=== PATIENT | male | born 1960 | race Caucasian/White ===

== ENCOUNTER 2017-12-07 16:33 | Inpatient (IN) | payer MEDICAID ==
[~2017-12-07] VITALS: Ht 182.9 cm; Wt 104.0 kg
[2017-12-07] MEDS ORDERED: furosemide 10 MG/1 ML 10ml inj IV ONE (16:50)
[2017-12-07] MEDS ORDERED: diltiazem 5mg/ml 5ml inj. IV ONE ×2 (17:05→17:50)
[2017-12-07 17:15] LABS: BASOPHILS # (AUTO) 0.1 X10'3 (0-0.2); BASOPHILS % (AUTO) 1.6 % (0-1); EOSINOPHILS # (AUTO) 0.1 X10'3 (0-0.9); EOSINOPHILS % (AUTO) 1.4 % (0-6); HEMATOCRIT 42.4 % (42.0-52.0); HEMOGLOBIN 14.6 g/dl (14.0-17.9); LYMPHOCYTES # (AUTO) 1.5 X10'3 (1.1-4.8); LYMPHOCYTES % (AUTO) 16.6 % (21-51); MEAN CORPUSCULAR HEMOGLOBIN 33.1 PG (27.0-31.0); MEAN CORPUSCULAR HGB CONC 34.3 % (33.0-36.5); MEAN CORPUSCULAR VOLUME 96.3 FL (78-98); MEAN PLATELET VOLUME 7.8 FL (7.4-10.4); MONOCYTES # (AUTO) 1.2 X10'3 (0-0.9); MONOCYTES % (AUTO) 12.9 % (2-12); NEUTROPHILS # (AUTO) 6.1 X10'3 (1.8-7.7); NEUTROPHILS % (AUTO) 67.5 % (42-75); PLATELET COUNT 234 X10'3 (140-440); RED BLOOD COUNT 4.41 X10'6 (4.70-6.10); RED CELL DISTRIBUTION WIDTH 14.9 % (11.5-14.5); WHITE BLOOD COUNT 9.1 X10'3 (4.5-11.0)
[2017-12-07 17:26] LABS: INR 1.1 INR; PARTIAL THROMBOPLASTIN TIME 25 SECONDS (22-32); PROTHROMBIN TIME 11.5 SECONDS (9.0-12.0)
[2017-12-07 17:32] LABS: ALANINE AMINOTRANSFERASE 184 U/L (12-78); ALBUMIN 2.8 G/DL (3.4-5.0); ALBUMIN/GLOBULIN RATIO 0.9 (1.1-1.5); ALKALINE PHOSPHATASE 104 IU/L (46-116); ANION GAP 10 (8-16); ASPARTATE AMINO TRANSFERASE 113 U/L (10-37); BILIRUBIN,TOTAL 0.9 MG/DL (0.1-1.0); BLOOD UREA NITROGEN 17 MG/DL (7-18); BUN/CREATININE RATIO 16.8 (5.4-32.0); CALCIUM 8.3 MG/DL (8.5-10.1); CHLORIDE 105 MMOL/L (99-107); CREATININE 1.01 MG/DL (0.60-1.10); GLUCOSE 104 MG/DL (70-104); POTASSIUM 4.1 MMOL/L (3.5-5.1); SODIUM 140 MMOL/L (135-145); TOTAL PROTEIN 5.8 G/DL (6.4-8.2); eGFR 76 ML/MIN
[2017-12-07] MEDS ORDERED: ondansetron/PF 4mg/2ml inj IV PRN (18:10)
[2017-12-07] MEDS ORDERED: acetaminophen 325mg tablet PO PRN ×2 (18:10)
[2017-12-07] MEDS ORDERED: magnesium Cl slow-release 64mg tablet PO PRN (18:10)
[2017-12-07] MEDS ORDERED: potassium Cl 40MEQ/NS 500ml 500 ML IV PRN ×2 (18:10)
[2017-12-07] MEDS ORDERED: potassium Cl 20 mEq SR tablet PO PRN (18:10)
[2017-12-07] MEDS ORDERED: magnesium hydroxide 30ml (MOM) UD suspension PO PRN (18:10)
[2017-12-07] MEDS ORDERED: HYDROcodone/acetaminophen 5mg/325mg tablet PO PRN (18:10)
[2017-12-07] MEDS ORDERED: magnesium 1gm/100ml D5W IVPB 100 ML IV PRN (18:10)
[2017-12-07] MEDS ORDERED: magnesium 4gm in 100ml NS 100 ML IV PRN (18:10)
[2017-12-07] MEDS ORDERED: mag hydrox/Alum hydrox/simeth 30ml oral suspension PO PRN (18:10)
[2017-12-07] MEDS ORDERED: thiamine inj. 100 MG in normal saline 100ml IV soln 100 ML IV ONE (18:10)
[2017-12-07] MEDS: apixaban 5mg tablet PO SCH (20:59)
[2017-12-07] MEDS: furosemide 10 MG/1 ML 10ml inj IV SCH (21:00)
[2017-12-07 22:00] VITALS: BP 114/83
[2017-12-08 02:00] VITALS: BP 121/89
[2017-12-08] MEDS ORDERED: diltiazem 5mg/ml 5ml inj. IV ONE (04:55)
[2017-12-08 05:59] LABS: INR 1.2 INR; PROTHROMBIN TIME 11.9 SECONDS (9.0-12.0)
[2017-12-08 06:00] VITALS: BP 123/87
[2017-12-08 06:10] LABS: ALANINE AMINOTRANSFERASE 153 U/L (12-78); ALBUMIN 2.5 G/DL (3.4-5.0); ALKALINE PHOSPHATASE 90 IU/L (46-116); ANION GAP 11 (8-16); ASPARTATE AMINO TRANSFERASE 87 U/L (10-37); BILIRUBIN,TOTAL 1.1 MG/DL (0.1-1.0); BLOOD UREA NITROGEN 18 MG/DL (7-18); CALCIUM 8.2 MG/DL (8.5-10.1); CHLORIDE 106 MMOL/L (99-107); CREATININE 1.06 MG/DL (0.60-1.10); GLUCOSE 83 MG/DL (70-104); POTASSIUM 3.1 MMOL/L (3.5-5.1); SODIUM 144 MMOL/L (135-145); TOTAL PROTEIN 5.1 G/DL (6.4-8.2); eGFR 72 ML/MIN
[2017-12-08 06:19] LABS: AMYLASE 32 U/L (25-115); LIPASE 141 U/L (73-393); MAGNESIUM 1.7 MG/DL (1.5-2.4); PHOSPHORUS 3.6 MG/DL (2.3-4.5)
[2017-12-08 06:31] LABS: BASOPHILS % (AUTO) 0.5 % (0-1); EOSINOPHILS # (AUTO) 0.2 X10'3 (0-0.9); EOSINOPHILS % (AUTO) 2.1 % (0-6); HEMATOCRIT 40.2 % (42.0-52.0); HEMOGLOBIN 13.5 g/dl (14.0-17.9); LYMPHOCYTES # (AUTO) 1.5 X10'3 (1.1-4.8); LYMPHOCYTES % (AUTO) 18.5 % (21-51); MEAN CORPUSCULAR HEMOGLOBIN 32.5 PG (27.0-31.0); MEAN CORPUSCULAR HGB CONC 33.6 % (33.0-36.5); MEAN CORPUSCULAR VOLUME 96.6 FL (78-98); MEAN PLATELET VOLUME 8.4 FL (7.4-10.4); MONOCYTES % (AUTO) 11.7 % (2-12); NEUTROPHILS # (AUTO) 5.5 X10'3 (1.8-7.7); NEUTROPHILS % (AUTO) 67.2 % (42-75); PLATELET COUNT 190 X10'3 (140-440); RED BLOOD COUNT 4.16 X10'6 (4.70-6.10); RED CELL DISTRIBUTION WIDTH 14.7 % (11.5-14.5); WHITE BLOOD COUNT 8.1 X10'3 (4.5-11.0)
[2017-12-08] MEDS: apixaban 5mg tablet PO SCH ×2 (08:00→19:41)
[2017-12-08] MEDS ORDERED: folic acid inj. 2 MG, thiamine inj. 100 MG, MVI, adult No.4 with vit. K 10 ML in dextro... IV SCH ×4 (08:00)
[2017-12-08] MEDS: K and/or MAG REPLACEMENT MC SCH (08:00)
[2017-12-08] MEDS: potassium Cl 20 mEq SR tablet PO PRN ×3 (08:01→16:42)
[2017-12-08] MEDS: diltiazem CD 180mg cap (once-daily) PO SCH (08:01)
[2017-12-08] MEDS: furosemide 10 MG/1 ML 10ml inj IV SCH ×2 (08:02→19:35)
[2017-12-08] MEDS ORDERED: NO HOME MEDS (10:39)
[2017-12-08 11:00] VITALS: BP 117/85
[2017-12-08 12:42] LABS: OCCULT BLOOD STOOL NEGATIVE (Neg)
[2017-12-08 15:00] VITALS: BP 117/89
[2017-12-08 18:00] VITALS: BP 112/86
[2017-12-08] MEDS: metoprolol tartrate 12.5mg (1/2 tablet) PO SCH (19:39)
[2017-12-08 22:00] VITALS: BP 121/89
[2017-12-09 00:41] LABS: BASOPHILS # (AUTO) 0.1 X10'3 (0-0.2); EOSINOPHILS # (AUTO) 0.2 X10'3 (0-0.9); EOSINOPHILS % (AUTO) 2.1 % (0-6); HEMATOCRIT 42.3 % (42.0-52.0); HEMOGLOBIN 14.6 g/dl (14.0-17.9); LYMPHOCYTES # (AUTO) 1.6 X10'3 (1.1-4.8); LYMPHOCYTES % (AUTO) 19.1 % (21-51); MEAN CORPUSCULAR HEMOGLOBIN 32.9 PG (27.0-31.0); MEAN CORPUSCULAR HGB CONC 34.5 % (33.0-36.5); MEAN CORPUSCULAR VOLUME 95.4 FL (78-98); MEAN PLATELET VOLUME 7.7 FL (7.4-10.4); MONOCYTES # (AUTO) 1.1 X10'3 (0-0.9); NEUTROPHILS # (AUTO) 5.3 X10'3 (1.8-7.7); NEUTROPHILS % (AUTO) 64.8 % (42-75); PLATELET COUNT 208 X10'3 (140-440); RED BLOOD COUNT 4.43 X10'6 (4.70-6.10); RED CELL DISTRIBUTION WIDTH 14.4 % (11.5-14.5); WHITE BLOOD COUNT 8.3 X10'3 (4.5-11.0)
[2017-12-09 00:50] LABS: ALANINE AMINOTRANSFERASE 141 U/L (12-78); ALBUMIN 2.7 G/DL (3.4-5.0); ALBUMIN/GLOBULIN RATIO 0.9 (1.1-1.5); ALKALINE PHOSPHATASE 104 IU/L (46-116); AMYLASE 45 U/L (25-115); ANION GAP 8 (8-16); ASPARTATE AMINO TRANSFERASE 67 U/L (10-37); BILIRUBIN,TOTAL 0.9 MG/DL (0.1-1.0); BLOOD UREA NITROGEN 24 MG/DL (7-18); BUN/CREATININE RATIO 22.2 (5.4-32.0); CALCIUM 8.7 MG/DL (8.5-10.1); CHLORIDE 104 MMOL/L (99-107); CREATININE 1.08 MG/DL (0.60-1.10); GLUCOSE 135 MG/DL (70-104); LIPASE 208 U/L (73-393); MAGNESIUM 1.7 MG/DL (1.5-2.4); PHOSPHORUS 3.2 MG/DL (2.3-4.5); POTASSIUM 3.7 MMOL/L (3.5-5.1); SODIUM 140 MMOL/L (135-145); TOTAL CARBON DIOXIDE 27.9 MMOL/L (24-32); TOTAL PROTEIN 5.8 G/DL (6.4-8.2); eGFR 71 ML/MIN
[2017-12-09 02:00] VITALS: BP 128/88
[2017-12-09 06:00] VITALS: BP 116/90
[2017-12-09 07:18] LABS: INR 1.1 INR; PROTHROMBIN TIME 11.3 SECONDS (9.0-12.0)
[2017-12-09] MEDS: apixaban 5mg tablet PO SCH (07:57)
[2017-12-09] MEDS: diltiazem CD 180mg cap (once-daily) PO SCH (07:57)
[2017-12-09] MEDS: metoprolol tartrate 12.5mg (1/2 tablet) PO SCH (07:57)
[2017-12-09] MEDS: furosemide 10 MG/1 ML 10ml inj IV SCH (07:58)
[2017-12-09] MEDS: K and/or MAG REPLACEMENT MC SCH (08:00)
[2017-12-09] MEDS ORDERED: folic acid 1mg tablet PO SCH (08:00)
[2017-12-09] MEDS ORDERED: multivitamins, therapeutics tablet PO SCH (08:00)
[2017-12-09] MEDS ORDERED: thiamine 100mg tablet PO SCH (08:00)
[2017-12-09] MEDS ORDERED: lisinopril 2.5mg tablet PO SCH (08:00)
[2017-12-09] MEDS ORDERED: FURO-150 PO (10:53)
[2017-12-09] MEDS ORDERED: APIX5TAB3 PO (10:53)
[2017-12-09] MEDS ORDERED: POTA8TAB3 PO (10:53)
[2017-12-09] MEDS ORDERED: LISI2.5T2 PO (10:53)
[2017-12-09] MEDS ORDERED: THI100T PO (10:53)
[2017-12-09] MEDS ORDERED: METO25TA6 PO (10:53)
[2017-12-09] MEDS ORDERED: MULT-1179 PO (10:53)
[2017-12-09] MEDS ORDERED: FOLI1TAB16 PO (10:53)
[2017-12-09 11:00] VITALS: BP 102/81
== END 2017-12-09 11:35 | disposition home or self-care (01) | DRG 201 ==
LOC: ER 16:33 → ED HOLD 18:07 → PCU 3S 19:15
PROVIDERS: ADMIT Internal Medicine; ATTEND Internal Medicine
DX: I48.91 Unspecified atrial fibrillation (principal); I50.9 Heart failure, unspecified; E66.01 Morbid (severe) obesity due to excess calories; F10.20 Alcohol dependence, uncomplicated; M79.89 Other specified soft tissue disorders; Z68.31 Body mass index [BMI] 31.0-31.9, adult; Z87.891 Personal history of nicotine dependence; Z79.899 Other long term (current) drug therapy
CPT/HCPCS: 36415; 71045; 80053; 82150; 82272; 83690; 83735; 83880; 84100; 84484; 85025; 85610; 85730; 87070; 93005; 93306; 96374; 96375; 99285; J1940; J3411; J3490; J7030; J7060

== ENCOUNTER 2017-12-12 05:48 | Emergency (ER) | payer MEDICAID ==
[~2017-12-12] VITALS: Ht 182.9 cm; Wt 95.4 kg
[~2017-12-12 05:48] MED LIST: APIX5TAB3 PO; FOLI1TAB16 PO; FURO-150 PO; LISI2.5T2 PO; METO25TA6 PO; MULT-1179 PO; NO HOME MEDS; POTA8TAB3 PO; THI100T PO
[2017-12-12] MEDS ORDERED: diltiazem 5mg/ml 5ml inj. IV ONE (06:45)
[2017-12-12] MEDS ORDERED: vancomycin/NS 1 GM ADD-VANTAGE 250 ML IV ONE (06:50)
[2017-12-12 07:12] VITALS: BP 116/74
[2017-12-12] MEDS ORDERED: CEPH500C5 PO (09:06)
== END 2017-12-12 09:18 | disposition home or self-care (01) ==
LOC: ER 05:48
DX: L03.113 Cellulitis of right upper limb (principal); I48.91 Unspecified atrial fibrillation; I50.9 Heart failure, unspecified; F17.200 Nicotine dependence, unspecified, uncomplicated; Z79.01 Long term (current) use of anticoagulants; Z79.2 Long term (current) use of antibiotics; Z79.899 Other long term (current) drug therapy
CPT/HCPCS: 93005; 96365; 96375; 99284; J3370; J3490

== ENCOUNTER 2017-12-25 12:42 | Emergency (ER) | payer MEDICAID ==
[~2017-12-25] VITALS: Ht 182.9 cm; Wt 90.9 kg
[~2017-12-25 12:42] MED LIST changes: +CEPH500C5 PO
[2017-12-25 13:01] VITALS: BP 122/89
[2017-12-25] MEDS ORDERED: FURO-150 PO (14:12)
[2017-12-25] MEDS ORDERED: FOLI1TAB16 PO (14:12)
== END 2017-12-25 14:23 | disposition home or self-care (01) ==
LOC: ER 12:43
DX: I50.9 Heart failure, unspecified (principal); I48.91 Unspecified atrial fibrillation; Z76.0 Encounter for issue of repeat prescription; Z79.899 Other long term (current) drug therapy
CPT/HCPCS: 99283

== ENCOUNTER 2019-02-11 10:52 | Emergency (ER) | payer MEDICAID ==
[~2019-02-11] VITALS: Ht 182.9 cm; Wt 90.9 kg
[~2019-02-11 10:52] MED LIST changes: -CEPH500C5 PO
[2019-02-11 10:58] VITALS: BP 126/91
== END 2019-02-11 11:47 | disposition home or self-care (01) ==
LOC: ER 10:52
DX: J01.90 Acute sinusitis, unspecified (principal); I48.91 Unspecified atrial fibrillation; I50.9 Heart failure, unspecified; Z79.899 Other long term (current) drug therapy
CPT/HCPCS: 71046; 99283

== ENCOUNTER 2019-09-18 10:29 | Emergency (ER) | payer MEDICAID ==
[~2019-09-18] VITALS: Ht 182.9 cm; Wt 90.0 kg
[~2019-09-18 10:29] MED LIST changes: -MULT-1179 PO; +MULT-25 PO
[2019-09-18 10:37] VITALS: BP 109/80
[2019-09-18] MEDS ORDERED: TETanus/Pertussis (Acell)/Diphther VAC/PF (Tdap-Adult) 0.5ml syringe IMVAC ONE (11:40)
[2019-09-18] MEDS ORDERED: LIDOcaine 1% 30ml preserv. free vial IJ ONE (11:40)
[2019-09-18] MEDS ORDERED: DOXY100C76 PO (12:06)
[2019-09-18] MEDS ORDERED: CEPH250T PO (12:06)
== END 2019-09-18 12:27 | disposition home or self-care (01) ==
LOC: ER 10:30
DX: M71.121 Other infective bursitis, right elbow (principal); I48.91 Unspecified atrial fibrillation; I50.9 Heart failure, unspecified; Z72.89 Other problems related to lifestyle; Z79.01 Long term (current) use of anticoagulants; Z79.899 Other long term (current) drug therapy
CPT/HCPCS: 10160; 87070; 87077; 87186; 99284